=== PATIENT | female | born 1970 | race Caucasian/White ===

== ENCOUNTER 2017-11-19 22:11 | Emergency (ER) | payer OTHER ==
[~2017-11-19] VITALS: Ht 167.6 cm; Wt 71.2 kg
[2017-11-19 22:13] VITALS: Ht 167.6 cm; Wt 71.2 kg
[2017-11-19 23:32] LABS: UA SPECIFIC GRAVITY >=1.030 (1.005-1.035); microscopic required? YES; urine erythrocyte 1+ (NEGATIVE)
[2017-11-19 23:34] LABS: PLATELET COUNT 274 x10^3mcL (130-400); RED CELL DISTRIBUTION WIDTH 13.7 % (11.5-14.5)
[2017-11-19 23:38] LABS: CALCIUM 9.1 mg/dL (8.5-10.1); CARBON DIOXIDE 25.5 mmol/L (21-32); CHLORIDE SERUM 102 mmol/L (98-107); CREATININE SERUM 0.9 mg/dL (0.6-1.0); GFR1 > 60 mL/min; GLUCOSE SERUM 123 mg/dL (74-106); POTASSIUM SERUM 3.6 mmol/L (3.5-5.1); SODIUM SERUM 136 mmol/L (136-145)
[2017-11-19 23:49] LABS: ALBUMIN 3.8 g/dL (3.4-5.0); ALKALINE PHOSPHATASE 86 U/L (46-116); ALT/SGPT 90 U/L (14-59); AST/SGOT 58 U/L (15-37); BILIRUBIN TOTAL 0.3 mg/dL (0.20-1.00); LIPASE 132 IU/L (73-393)
[2017-11-20 00:01] LABS: TOTAL PROTEIN, SERUM 8.4 g/dL (6.4-8.2)
[2017-11-20 03:37] VITALS: BP 181/102
== END 2017-11-20 03:37 | disposition home or self-care (01) ==
LOC: ED 22:11
PROVIDERS: Emergency Medicine
DX: R51 Headache (principal); R11.2 Nausea with vomiting, unspecified; R50.9 Fever, unspecified; I10 Essential (primary) hypertension
CPT/HCPCS: 83880; J2270; J2550; J7030

== ENCOUNTER 2019-12-25 01:39 | Emergency (ER) | payer OTHER ==
[~2019-12-25] VITALS: Ht 170.2 cm; Wt 73.5 kg
[2019-12-25 01:48] VITALS: Ht 170.2 cm; Wt 73.5 kg
[2019-12-25 04:38] VITALS: BP 150/98
== END 2019-12-25 04:38 | disposition home or self-care (01) ==
LOC: ED 01:39
DX: S16.1XXA Strain of muscle, fascia and tendon at neck level, initial encounter (principal); S20.211A Contusion of right front wall of thorax, initial encounter; F17.210 Nicotine dependence, cigarettes, uncomplicated; I10 Essential (primary) hypertension; G43.909 Migraine, unspecified, not intractable, without status migrainosus; V49.88XA Car occupant (driver) (passenger) injured in other specified transport accidents, initial encounter; Y93.89 Activity, other specified; Y92.488 Other paved roadways as the place of occurrence of the external cause; Y99.8 Other external cause status
CPT/HCPCS: 99406; J1885